=== PATIENT | female | born 1965 | race Caucasian/White ===

== ENCOUNTER → 2022-04-30 | Outpatient (CLI) | payer BC ==
--- NOTE | 2022-05-01 07:46 | XR ---
EXAMINATION TYPE: XR foot complete RT, XR ankle complete RT DATE OF EXAM: 04/30/2022 5:11 PM INDICATION: Patient age:Female; 57 years old; Reason for study: M069 RHEUMATOID ARTHRITIS, UNSPECIFIED; [facility]. COMPARISON: Right ankle radiograph 04/30/2022 TECHNIQUE: The right foot was examined in the AP, oblique, and lateral projections. The right ankle w as examined in AP, oblique, and lateral projections. FINDINGS: No evidence of any acute osseous pathology. Mild soft tissue swelling of the ankle. Joints are preser ezequiel. No osseous erosions. No significant osteophytosis. Ankle mortise is intact. 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 Tiny plantar calcaneal spur. Kager's fat pad is intact. IMPRESSION: 1. No evidence of acute fracture or dislocation. 2. No significant arthritic changes identified.
== END | disposition home or self-care (01) ==
LOC: RADXRMAIN 16:37
PROVIDERS: ATTEND Podiatrist
DX: M06.9 Rheumatoid arthritis, unspecified (principal)

== ENCOUNTER → 2022-04-30 | Outpatient (CLI) | payer BC ==
[2022-04-30 22:39] LABS: Basophils # (A) 0.03 X 10*3/uL (0.00-0.10); Basophils % (A) 0.5 %; Eosinophils # (A) 0.09 X 10*3/uL (0.04-0.35); Eosinophils % (A) 1.6 %; HCT 39.8 % (37.2-46.3); HGB 12.9 g/dL (12.0-15.0); Immature Grans, Automated 0.2 %; Lymphocytes % (A) 30.3 %; MCH 29.9 pg (27.0-32.0); MCHC 32.4 g/dL (32.0-37.0); MCV 92.1 fL (80.0-97.0); Mean Platelet Volume 10.9 fL (9.5-12.2); Monocytes # (A) 0.74 X 10*3/uL (0.20-1.00); Monocytes % (A) 13.2 %; NRBC Per 100 WBC 0 /100 WBCS (0.0-0.0); Neutrophils # (A) 3.04 X 10*3/uL (1.80-7.70); Neutrophils % (A) 54.2 %; Platelet Count 271 X 10*3/uL (140-440); RBC 4.32 X 10*6/uL (4.10-5.20); RDW 12.6 % (11.5-14.5); WBC 5.61 X 10*3/uL (4.50-10.00)
[2022-04-30 22:55] LABS: Erythrocyte Sedimentation Rate 19 mm/Hr (0-30)
[2022-04-30 23:58] LABS: African American GFR (CKD) 114.2 (60.0-200.0); Albumin 4.1 g/dL (3.8-4.9); Albumin/Globulin Ratio 1.5 (1.60-3.17); Anion Gap 10.3 mmol/L (10.00-18.00); BUN/Creat Ratio 15.64 Ratio (12.00-20.00); Blood Urea Nitrogen 10.4 mg/dL (9.0-27.0); C Reactive Protein 5.1 mg/dL (0.00-0.80); Carbon Dioxide 27.1 mmol/L (20.0-27.5); Globulin 2.7 g/dL (1.6-3.3); Non-African American GFR(CKD) 98.5 (60.0-200.0); Potassium 4.1 mmol/L (3.5-5.5); Total Bilirubin 0.2 mg/dL (0.30-1.20); Total Protein 6.9 g/dL (6.2-8.2)
[2022-05-01 13:03] LABS: HLA B27 NEGATIVE
== END | disposition home or self-care (01) ==
LOC: LABWHC1 16:22
PROVIDERS: ATTEND Podiatrist
DX: E11.9 Type 2 diabetes mellitus without complications (principal); M06.9 Rheumatoid arthritis, unspecified; M01.X71 Direct infection of right ankle and foot in infectious and parasitic diseases classified elsewhere
CPT/HCPCS: 36415; 80053; 83036; 85025; 85652; 86038; 86140; 86431; 86812

== ENCOUNTER 2023-02-21 14:10 | Emergency (ER) | payer BC ==
--- NOTE | 2023-02-21 16:53 | ED ---
General Adult HPI - General Chief complaint: Extremity Problem,Nontraumatic Stated complaint: left knee swollen Time Seen by Provider: 02/21/23 15:07 Source: patient, RN notes reviewed Mode of arrival: ambulatory Limitations: no limitations - History of Present Illness Initial comments: 58-year-old female presents to the emergency department chief complaint of left knee swelling 4 days. Patient states that she has a history of rheumatoid arthritis and this has happened 3 times in the past. She reports that the pain comes and goes but there is no known trigger. She states that she has not tried any anti-inflammatories. Denies redness of the knee. She states that she has an appointment with orthopedics tomorrow regarding this issue. - Related Data Home Medications Medication Instructions Recorded Confirmed On License Of [facility] Complete Multi 1 cap PO DAILY 02/21/23 02/21/23 Dismuzyme Plus Granules 2 cap PO DAILY 02/21/23 02/21/23 Energetix Para-Chord 10 drops PO BID 02/21/23 02/21/23 Inflammatone 2 cap PO BID 02/21/23 02/21/23 Vitamin D3 + K2 [place] 2 spr PO DAILY 02/21/23 02/21/23 Allergies Allergy/AdvReac Type Severity Reaction Status Date / Time ampicillin Allergy Rash/Hives Verified 02/21/23 16:24 corn AdvReac Unknown Verified 02/21/23 16:24 Review of Systems ROS Statement: Those systems with pertinent positive or pertinent negative responses have been documented in the HPI. ROS Other: All systems not noted in ROS Statement are negative. Past Medical History Past Medical History: Rheumatoid Arthritis (RA) History of Any Multi-Drug Resistant Organisms: None Reported Past Surgical History: Tonsillectomy Past Psychological History: No Psychological Hx Reported Smoking Status: Current every day smoker Past Alcohol Use History: None Reported Past Drug Use History: None Reported General Exam Limitations: no limitations General appearance: alert, in no apparent distress Head exam: Present: atraumatic, normocephalic, normal inspection Eye exam: Present: normal appearance. Absent: scleral icterus, conjunctival injection, periorbital swelling ENT exam: Present: normal exam, mucous membranes moist Neck exam: Present: normal inspection. Absent: tenderness, meningismus, lymphadenopathy Respiratory exam: Present: normal lung sounds bilaterally. Absent: respiratory distress, wheezes, rales, rhonchi, stridor Cardiovascular Exam: Present: regular rate, normal rhythm, normal heart sounds. Absent: systolic murmur, diastolic murmur, rubs, gallop, clicks Extremities exam: Present: full ROM, normal capillary refill, other (Left knee swelling without erythema, full passive range of motion without tenderness, DP and PT pulses 2+). Absent: tenderness, pedal edema, calf tenderness Back exam: Present: normal inspection Neurological exam: Present: alert, oriented X3, CN II-XII intact Psychiatric exam: Present: normal affect, normal mood Skin exam: Present: warm, dry, intact, normal color. Absent: rash Course Vital Signs 02/21/23 02/21/23 14:15 17:42 Temperature 98 F 100.2 F H Pulse Rate 109 H 98 Respiratory 18 16 Rate Blood Pressure 122/76 99/65 O2 Sat by Pulse 99 92 L Oximetry Medical Decision Making - Medical Decision Making Was pt. sent in by a medical professional or institution (, PA, LAST MODEL DEPARTMENT SUPERVISOR, urgent care, hospital, or jail...) When possible be specific @ -No Did you speak to anyone other than the patient for history (EMS, parent, family, police, friend...)? What history was obtained from this source @ -No Did you review nursing and triage notes (agree or disagree)? Why? @ -I reviewed and agree with nursing and triage notes Were old charts reviewed (outside hosp., previous admission, EMS record, old EKG, old radiological studies, urgent care reports/EKG's, jail records)? Report findings @ -No old charts were reviewed Differential Diagnosis (chest pain, altered mental status, abdominal pain women, abdominal pain men, vaginal bleeding, weakness, fever, dyspnea, syncope, headache, dizziness, GI bleed, back pain, seizure, CVA, palpatations, mental health, musculoskeletal)? @ -Differential Musculoskeletal Muscular strain, contusion, ligament sprain, fracture, arthritis, septic arthritis, bursitis, cellulitis, muscle spasm, nerve compression, DVT, arterial occlusion, herpes zoster, electrolyte abnormality, tumor.... This is not meant to be in all inclusive list EKG interpreted by me (3pts min.). @ -none X-rays interpreted by me (1pt min.). @ -None done CT interpreted by me (1pt min.). @ -None done U/S interpreted by me (1pt. min.). @ -None done What testing was considered but not performed or refused? (CT, X-rays, U/S, labs)? Why? @ -XR considered What meds were considered but not given or refused? Why? @ -None Did you discuss the management of the patient with other professionals (professionals i.e. , PA, LAST MODEL DEPARTMENT SUPERVISOR, lab, RT, psych nurse, social media analyst, embosser apprentice, teacher, airfield services officer, behavioral health case manager)? Give summary @ -No Was smoking cessation discussed for >3mins.? @ -No Was critical care preformed (if so, how long)? @ -No Were there social determinants of health that impacted care today? How? (Homelessness, low income, unemployed, alcoholism, drug addiction, transportation, low edu. Level, literacy, decrease access to med. care, fci, rehab)? @ -No Was there de-escalation of care discussed even if they declined (Discuss DNR or withdrawal of care, Hospice)? DNR status @ -No What co-morbidities impacted this encounter? (DM, HTN, Smoking, COPD, CAD, Cancer, CVA, ARF, Chemo, Hep., AIDS, mental health diagnosis, sleep apnea, morbid obesity)? @ -None Was patient admitted / discharged? Hospital course, mention meds given and route, prescriptions, significant lab abnormalities, going to OR and other pertinent info. @ -Discharged. Patient presented to emergency department chief complaint of left knee swelling 4 days. Patient reports that she has an appointment with orthopedics tomorrow regarding this. Patient was evaluated by my attending, Dr. Smith as well as myself. Risks and benefits of arthrocentesis were discussed with patient. This was decided against with patient. [facility] and appointment was confirmed. Advised patient to follow up as scheduled and return precautions discussed. Patient discharged in stable condition. Undiagnosed new problem with uncertain prognosis? @ -No Drug Therapy requiring intensive monitoring for toxicity (Heparin, Nitro, Insulin, Cardizem)? @ -No Were any procedures done? @ -No Diagnosis/symptom? @ -knee swelling Acute, or Chronic, or Acute on Chronic? @ -acute Uncomplicated (without systemic symptoms) or Complicated (systemic symptoms)? @ -uncomplicated Side effects of treatment? @ -No Exacerbation, Progression, or Severe Exacerbation? @ -No Poses a threat to life or bodily function? How? (Chest pain, [place], [place], pneumonia, PE, COPD, DKA, ARF, appy, cholecystitis, CVA, Diverticulitis, Homicidal, Suicidal, threat to staff... and all critical care pts) @ -No Disposition Clinical Impression: Swollen L knee Disposition: HOME SELF-CARE Condition: Stable Instructions (If sedation given, give patient instructions): Rheumatoid Arthritis (ED) Additional Instructions: Follow-up with [facility] as scheduled tomorrow [id number] at 3:05pm. Return to the emergency department for new or worsening symptoms. Is patient prescribed a controlled substance at d/c from ED?: No Referrals: None,Stated [Primary Care Provider] - 1-2 days Time of Disposition: 16:52
[2023-02-21 17:43] VITALS: BP 99/65; PULSE 98; RESP 16; TEMP 100.2
== END 2023-02-21 18:00 | disposition home or self-care (01) ==
LOC: EC 14:10
DX: M25.462 Effusion, left knee (principal); F17.200 Nicotine dependence, unspecified, uncomplicated; Z91.018 Allergy to other foods; Z88.8 Allergy status to other drugs, medicaments and biological substances
CPT/HCPCS: 99283

== ENCOUNTER → 2023-04-13 | Outpatient (CLI) | payer BC ==
[2023-04-13 15:32] LABS: Appearance,BF Cloudy; Nucleated Cells, Body Fluid 15100 /uL; RBC, Body Fluid 800 /uL
[2023-04-13 15:33] LABS: Mononuclear WBC,Body Fluid 13 %; Polynuclear WBC,Body Fluid 87 %; Total Cells Counted,Body Fluid 100
[2023-04-14 02:11] LABS: Basophils # (A) 0.09 X 10*3/uL (0.00-0.10); Eosinophils # (A) 0.17 X 10*3/uL (0.04-0.35); Eosinophils % (A) 1.8 %; HGB 12.6 d/dL (12.0-15.0); Lymphocytes # (A) 2.21 X 10*3/uL (0.90-5.00); Lymphocytes % (A) 23.5 %; MCH 29.9 pg (27.0-32.0); MCHC 32.3 d/dL (32.0-37.0); MCV 92.6 FL (80.0-97.0); Monocytes % (A) 7.4 %; NRBC Per 100 WBC 0 X 10*3/uL (0.00-0.01); Neutrophils % (A) 65.9 %; Platelet Count 463 X 10*3/uL (140-440); RBC 4.21 X 10*6/uL (4.10-5.20); RDW 13.1 % (11.5-14.5); WBC 9.41 X 10*3/uL (4.50-10.00)
[2023-04-14 02:50] LABS: C Reactive Protein 6.6 mg/dL (0.00-0.80)
[2023-04-14 03:15] LABS: Erythrocyte Sedimentation Rate 43 mm/Hr (0-30)
== END | disposition home or self-care (01) ==
LOC: LABWHC1 12:01
PROVIDERS: ATTEND Orthopaedic Surgery
DX: M10.9 Gout, unspecified (principal); M25.562 Pain in left knee; M25.462 Effusion, left knee; M06.862 Other specified rheumatoid arthritis, left knee
CPT/HCPCS: 36415; 84550; 85025; 85652; 86140; 87070; 87075; 87205; 89050; 89060